=== PATIENT | male | born 1975 | race Caucasian/White ===

== ENCOUNTER 2016-08-16 08:11 | Emergency (ER) | payer OTHER ==
[~2016-08-16] VITALS: Ht 162.6 cm; Wt 77.0 kg
[~2016-08-16 08:11] MED LIST: ASPI81TA82 PO; ATEN1TAB73 PO; IBUP600T26 PO; MECL-62 PO; TURM450C PO; VITA500S3 SL
[2016-08-16 08:20] VITALS: BP 131/75; PULSE 60; RESP 20; TEMP 96.6; O2SAT 97
[2016-08-16] MEDS ORDERED: SODIUM CHLOR 0.9% 1000 ML INJ 1,000 ML IV SCH (08:40)
[2016-08-16] MEDS ORDERED: MECL-62 PO (08:41)
[2016-08-16] MEDS ORDERED: MULT1TAB84 PO (08:41)
[2016-08-16] MEDS ORDERED: ATEN25TA PO (08:41)
[2016-08-16] MEDS ORDERED: ASPI81CH CHEW (08:41)
[2016-08-16] MEDS ORDERED: TURM500C PO (08:41)
--- NOTE | 2016-08-16 08:43 | PD ---
HPI Chief Complaint: Dizziness Time Seen by Provider: 08:40 Travel History International Travel<30 days: No Contact w/Intl Traveler<30days: No Traveled to known affect area: No History of Present Illness HPI This is a 40-year-old male who presents to the emergency department with nausea and intermittent abdominal pain. He says his pain is worse on the right side, moderate severity, worse after he eats carbs, with no associated vomiting or diarrhea. He denies any dysuria, hematuria, frequency or urgency. He says he' s had this pain intermittently for years. He's had CT scans in the past. Once he was told he had mesenteric adenitis. He follows with Dr. Gaspar and she's told him she doesn't think that's what it is. He's never seen a GI doctor. He takes Phenergan and meclizine for dizziness and nausea. He comes today because he feels like his nausea has been worse and he's been having some intermittent headaches. PFSH Past Medical History Anxiety: Yes (PANIC ATTACKS) Heart Rhythm Problems: Yes (PALPITATIONS) Cardiac Catheterization: No Cardiovascular Problems: Yes (HEART MURMUR) High Cholesterol: No Congestive Heart Failure: No Diabetes: No Diminished Hearing: No Hypertension: Yes Musculoskeletal: Yes (CHRONIC NECK PAIN) Psychiatric: Yes (PANIC ATTACKS) Myocardial Infarction: No Tetanus Vaccination: > 5 Years Influenza Vaccination: No Past Surgical History Abdominal Surgery: Yes (BILAT INGUINAL HERNIAS) Coronary Artery Bypass Graft: No Oral Surgery: Yes (WISDOM TEETH) Social History Alcohol Use: No Tobacco Use: No Substance Use: No Allergies-Medications (Allergen,Severity, Reaction): Coded Allergies: Polyethylene Glycol (Verified Allergy, Severe, CARDIAC, 04/08/16) Amoxicillin (Verified Allergy, Intermediate, 04/08/16) Penicillin (Verified Allergy, Intermediate, 04/08/16) Uncoded Allergies: CILLINS (Allergy, Unknown, 05/27/14) Reported Meds & Prescriptions Reported Meds & Active Scripts Active Reported Turmeric (Turmeric (Curcuma Longa)) 500 Mg Cap 500 Mg PO DAILY Meclizine (Meclizine HCl) 25 Mg Tab 25 Mg PO TID PRN Multivitamin Adults (Multiple Vitamins W/ Minerals) 1 Tab 1 Tab PO DAILY Atenolol 25 Mg Tab 12.5 Mg PO DAILY Aspirin 81 Mg Chew 81 Mg CHEW DAILY Review of Systems Except as stated in HPI: all other systems reviewed are Neg Physical Exam Narrative GENERAL:Well appearing, no acute distress SKIN: Warm and dry. HEAD: Atraumatic. Normocephalic. EYES: Pupils equal and round. No injection or drainage. ENT: Moist mucous membranes NECK: Trachea midline. CARDIOVASCULAR: Regular rate and rhythm. No murmur appreciated. RESPIRATORY: Clear to auscultation. Breath sounds equal bilaterally. GASTROINTESTINAL: Abdomen soft, mildly tender to palpation in the right lower quadrant and suprapubic region with no rebound or guarding. MUSCULOSKELETAL: No obvious deformities. NEUROLOGICAL: Awake and alert. No obvious cranial nerve deficits. Moving all extremities. PSYCHIATRIC: Somewhat anxious Data Data Last Documented VS Vital Signs Date Time Temp Pulse Resp B/P Pulse Ox O2 Delivery O2 Flow Rate FiO2 08/16/16 09:38 58 18 119/65 97 Room Air 08/16/16 08:20 96.6 Orders Complete Blood Count With Diff (08/16/16 08:40) Comprehensive Metabolic Panel (08/16/16 08:40) Lipase (08/16/16 08:40) Urinalysis - C+S If Indicated (08/16/16 08:40) Iv Access Insert/Monitor (08/16/16 08:40) Ecg Monitoring (08/16/16 08:40) Oximetry (08/16/16 08:40) Ondansetron Inj (Zofran Inj) (08/16/16 08:45) Sodium Chlor 0.9% 1000 Ml Inj (Ns 1000 M (08/16/16 08:40) Sodium Chloride 0.9% Flush (Ns Flush) (08/16/16 08:45) Labs Laboratory Tests Test 08/16/16 08/16/16 08:45 08:50 Urine Color YELLOW Urine Turbidity CLEAR Urine pH 6.5 Urine Specific [place] 1.018 Urine Protein NEG mg/dL Urine Glucose (UA) NEG mg/dL Urine Ketones NEG mg/dL Urine Occult Blood NEG Urine Nitrite NEG Urine Bilirubin NEG Urine Urobilinogen LESS THAN 2.0 MG/DL Urine Leukocyte Esterase NEG Urine RBC LESS THAN 1 /hpf Urine WBC LESS THAN 1 /hpf Urine Mucus FEW /lpf Microscopic Urinalysis Comment CULT NOT INDICATED White Blood Count 8.6 TH/MM3 Red Blood Count 4.58 MIL/MM3 Hemoglobin 15.2 GM/DL Hematocrit 43.0 % Mean Corpuscular Volume 93.8 FL Mean Corpuscular Hemoglobin 33.1 PG Mean Corpuscular Hemoglobin 35.3 % Concent Red Cell Distribution Width 13.4 % Platelet Count 217 TH/MM3 Mean Platelet Volume 9.4 FL Neutrophils (%) (Auto) 59.2 % Lymphocytes (%) (Auto) 27.9 % Monocytes (%) (Auto) 9.9 % Eosinophils (%) (Auto) 2.2 % Basophils (%) (Auto) 0.8 % Neutrophils # (Auto) 5.1 TH/MM3 Lymphocytes # (Auto) 2.4 TH/MM3 Monocytes # (Auto) 0.9 TH/MM3 Eosinophils # (Auto) 0.2 TH/MM3 Basophils # (Auto) 0.1 TH/MM3 CBC Comment DIFF FINAL Differential Comment Sodium Level 139 MEQ/L Potassium Level 3.6 MEQ/L Chloride Level 101 MEQ/L Carbon Dioxide Level 29.9 MEQ/L Anion Gap 8 MEQ/L Blood Urea Nitrogen 15 MG/DL Creatinine 0.86 MG/DL Estimat Glomerular Filtration 98 ML/MIN Rate Random Glucose 105 MG/DL Calcium Level 8.6 MG/DL Total Bilirubin 0.4 MG/DL Aspartate Amino Transf 13 U/L (AST/SGOT) Alanine Aminotransferase 33 U/L (ALT/SGPT) Alkaline Phosphatase 60 U/L Total Protein 7.2 GM/DL Albumin 4.1 GM/DL Lipase 134 U/L MDM Medical Decision Making Medical Screen Exam Complete: Yes Emergency Medical Condition: Yes Interpretation(s) hypothermic, no tachycardia, normotensive No leukocytosis Electrolytes within normal limits Lipase Urinalysis: No infection Differential Diagnosis Gastritis, gastroenteritis, appendicitis, cholecystitis, cholelithiasis, inflammatory bowel disease, irritable bowel syndrome Narrative Course This is a 40-year-old male who presents to the emergency department with abdominal pain on the right side that's been going on for 2-3 weeks associated with nonspecific symptoms including some headache, stuttering and nausea. He says he's been having these symptoms intermittently for years. He's been seen in this emergency department several times for it and has had 3 [address] scans, one of which demonstrated mesenteric adenitis. He follows with Dr. Gaspar but he has never seen a GI doctor. He was placed on a monitor and an IV was established. Labs were obtained which were all reassuring. I had a long conversation with the patient regarding the risks versus benefits of CT imaging and he would prefer to defer CT imaging at this time as he's had so many CTs in the past and his labs are unremarkable. A think the best next step for him is to see a GI doctor and have a colonoscopy. He understands this and will follow- up with Dr. Gaspar as soon as possible. Diagnosis Primary Impression: Abdominal pain Qualified Code: R10.31 - Right lower quadrant abdominal pain Referrals: Nabeel Copeland MD Patient Instructions: General Instructions Additional Instructions: If you develop severe or worsening abdominal pain, fever>100.4, persistent vomiting or inability to eat or drink return to the emergency department immediately. Follow up with your primary care physician as soon as possible for a check up. Med/Other Pt SpecificInfo: Prescription(s) given Scripts Dicyclomine 20 Mg Tab20 Mg PO QID PRN (CRAMPS) #120 TAB Ref 0 Prov:Denise Hines MD 08/16/16 Disposition: 01 DISCHARGE HOME Condition: Stable Denise Hines MD Aug 16, 2016 08:43
[2016-08-16] MEDS ORDERED: ONDANSETRON HCL 4 MG/2 ML VIAL IVP ONE (08:45)
[2016-08-16] MEDS ORDERED: SODIUM CHLORIDE 0.9% FLUSH 5 ML FLUSH IVF PRN (08:45)
[2016-08-16 08:56] VITALS: O2SAT 95
[2016-08-16 09:06] LABS: AUTOMATED NEUTROPHIL # 5.1 TH/MM3 (1.8-7.7); BASOPHIL # 0.1 TH/MM3 (0-0.2); BASOPHIL % 0.8 % (0.0-2.0); EOSINOPHIL # 0.2 TH/MM3 (0-0.4); EOSINOPHIL % 2.2 % (0.0-4.0); HEMO FLAGS DIFF FINAL; LYMPH % 27.9 % (9.0-44.0); LYMPHOCYTE # 2.4 TH/MM3 (1.0-4.8); MEAN CELL VOLUME 93.8 FL (80.0-100.0); MEAN CORPUSCULAR HEMOGLOBIN 33.1 PG (27.0-34.0); MEAN CORPUSCULAR HGB CONC 35.3 % (32.0-36.0); MONO % 9.9 % (0.0-8.0); NEUT % 59.2 % (16.0-70.0); PLATELET COUNT 217 TH/MM3 (150-450); RED BLOOD COUNT 4.58 MIL/MM3 (4.50-5.90); RED CELL DISTRIBUTION WIDTH 13.4 % (11.6-17.2); WHITE BLOOD COUNT 8.6 TH/MM3 (4.0-11.0)
[2016-08-16 09:16] LABS: BLOOD, URINE NEG (NEG); COMMENT (UR) CULT NOT INDICATED; CULTURE IF INDICATED CULT NOT INDICATED; GLUCOSE,URINE NEG (NEG); KETONE, URINE NEG (NEG); MUCUS URINE FEW /lpf (OCC); NITRITE,URINE NEG (NEG); PH, URINE 6.5 (5.0-8.5); URINE COLOR YELLOW (YELLW/STRAW)
[2016-08-16 09:25] LABS: ANION GAP 8 MEQ/L (5-15); AST (GOT) 13 U/L (15-37); BICARBONATE 29.9 MEQ/L (21.0-32.0); BLOOD UREA NITROGEN 15 MG/DL (7-18); CHLORIDE 101 MEQ/L (98-107); GLOMERULAR FILTRATION RATE 98 ML/MIN (>89); POTASSIUM 3.6 MEQ/L (3.5-5.1); SODIUM (NA) 139 MEQ/L (136-145)
[2016-08-16 09:28] LABS: ALKALINE PHOSPHATASE 60 U/L (45-117); ALT (GPT) 33 U/L (12-78); TOTAL BILIRUBIN ADULT 0.4 MG/DL (0.2-1.0)
[2016-08-16 09:38] VITALS: BP 119/65; PULSE 58; RESP 18; O2SAT 97
[2016-08-16] MEDS ORDERED: DICY20TA10 PO (10:02)
[2016-10-12] MEDS ORDERED: OMEGCAP PO (12:01)
[2016-10-12] MEDS ORDERED: [UNRECOGNIZED DRUG - OTHER] PO (12:01)
[2016-10-12] MEDS ORDERED: PROM12.54 PO (12:01)
[2016-10-12] MEDS ORDERED: BENA25TA3 PO (12:01)
[2016-10-12] MEDS ORDERED: ACET1CAP18 PO (12:01)
[2016-10-12] MEDS ORDERED: CHOLMIS PO (12:01)
== END 2016-08-16 10:36 | disposition home or self-care (01) ==
LOC: NEPC 08:11
DX: R10.31 Right lower quadrant pain (principal); R42 Dizziness and giddiness; I10 Essential (primary) hypertension; F41.0 Panic disorder [episodic paroxysmal anxiety]
CPT/HCPCS: 80053; 81001; 83690; 85025; 96361; 96374; 99284; J2405; J7030

== ENCOUNTER → 2016-10-04 | Outpatient (CLI) | payer OTHER ==
[~2016-10-04] MED LIST changes: +ACET1CAP18 PO; +ASPI81CH CHEW; -ASPI81TA82 PO; -ATEN1TAB73 PO; +ATEN25TA PO; +BENA25TA3 PO; +CHOLMIS PO; +DICY20TA10 PO; -IBUP600T26 PO; +MULT1TAB84 PO; +OMEGCAP PO; +PROM12.54 PO; -TURM450C PO; +TURM500C PO; -VITA500S3 SL; +[UNRECOGNIZED DRUG - OTHER] PO
[2016-10-04 13:08] LABS: HDL CHOLESTEROL 49.8 MG/DL (40.0-60.0)
== END ==
LOC: CLAB 12:13
PROVIDERS: ATTEND Family Medicine
DX: E78.2 Mixed hyperlipidemia (principal); E66.9 Obesity, unspecified
CPT/HCPCS: 36415; 80061